=== PATIENT | male | born 1965 | race African-American/Black ===

== ENCOUNTER 2020-01-23 10:53 | Emergency (ER) | payer MEDICAID, OTHER ==
[~2020-01-23] VITALS: Ht 182.9 cm; Wt 86.2 kg
[2020-01-23 11:36] LABS: Urine Bacteria NONE SEEN /hpf (None Seen); Urine Blood Negative /uL (Negative); Urine Mucus FEW (None Seen); Urine Specific Gravity 1.033 (1.001-1.035); Urine WBC 9 /hpf (0 - 3)
[2020-01-23 12:27] VITALS: BP 146/84
== END 2020-01-23 12:56 | disposition home or self-care (01) ==
LOC: ER 10:53 → EDBD 10:53 → ER 12:56
DX: R25.2 Cramp and spasm (principal); F17.210 Nicotine dependence, cigarettes, uncomplicated
CPT/HCPCS: 81001

== ENCOUNTER 2021-11-03 14:34 | Emergency (ER) | payer MEDICAID ==
[~2021-11-03] VITALS: Ht 185.4 cm; Wt 98.9 kg
[2021-11-03] MEDS ORDERED: CEPH-509 PO (15:53)
[2021-11-03 16:54] VITALS: BP 120/68
== END 2021-11-03 17:01 | disposition home or self-care (01) ==
LOC: ER 14:34
DX: S30.812A Abrasion of penis, initial encounter (principal); F17.210 Nicotine dependence, cigarettes, uncomplicated; X58.XXXA Exposure to other specified factors, initial encounter; Y93.89 Activity, other specified; Y92.89 Other specified places as the place of occurrence of the external cause; Y99.8 Other external cause status
CPT/HCPCS: 76870

== ENCOUNTER 2022-04-01 07:59 | Emergency (ER) | payer MEDICAID ==
[~2022-04-01] VITALS: Ht 185.4 cm; Wt 100.8 kg
[~2022-04-01 07:59] MED LIST: CEPH-509 PO
[2022-04-01 08:26] VITALS: BP 137/104
[2022-04-01] MEDS ORDERED: IBUP800T26 PO (10:10)
[2022-04-01] MEDS ORDERED: MONT-8 PO (10:10)
[2022-04-01] MEDS ORDERED: PROM1SOL4 PO (10:10)
[2022-04-01] MEDS ORDERED: AZITTAB PO (10:10)
== END 2022-04-01 10:25 | disposition home or self-care (01) ==
LOC: ER 07:59
DX: J06.9 Acute upper respiratory infection, unspecified (principal); F17.210 Nicotine dependence, cigarettes, uncomplicated; Z79.899 Other long term (current) drug therapy; Z20.822 Contact with and (suspected) exposure to COVID-19
CPT/HCPCS: 36415; 87426; 87804

== ENCOUNTER 2022-05-16 22:43 | Emergency (ER) | payer MEDICAID ==
[~2022-05-16] VITALS: Ht 185.4 cm; Wt 100.0 kg
[~2022-05-16 22:43] MED LIST changes: +AZITTAB PO; +IBUP800T26 PO; +MONT-8 PO; +PROM1SOL4 PO
[2022-05-16 23:53] VITALS: BP 156/107
[2022-05-17] MEDS ORDERED: ASPI81CH59 PO (15:09)
[2022-05-17] MEDS ORDERED: AMLO-489 PO (15:09)
[2022-05-17] MEDS ORDERED: OLME40TA26 PO (15:09)
[2022-05-17] MEDS ORDERED: ATEN-60 PO (15:09)
== END 2022-05-16 23:41 | disposition home or self-care (01) ==
LOC: EDBD 22:43 → ER 22:46
DX: I10 Essential (primary) hypertension (principal); F41.9 Anxiety disorder, unspecified; F17.210 Nicotine dependence, cigarettes, uncomplicated; Z79.1 Long term (current) use of non-steroidal anti-inflammatories (NSAID); Z79.2 Long term (current) use of antibiotics; Z79.899 Other long term (current) drug therapy
CPT/HCPCS: 93005

== ENCOUNTER 2022-05-17 09:42 | Inpatient (IN) | payer MEDICAID ==
[~2022-05-17] VITALS: Ht 185.4 cm; Wt 99.8 kg
[2022-05-17 10:45] LABS: Basophils # (auto) 0 10 ^3/uL (0-0.2); Basophils % (auto) 0.5 % (0.0-2.0); Eosinophils # (auto) 0 10 ^3/uL (0-0.8); Hematocrit 39.7 % (41.0-53.0); Monocytes # (auto) 0.3 10 ^3/uL (0-1.3); Monocytes % (auto) 4.8 % (0.0-12.0); White Blood Cell 7.1 10^3/uL (4.4-10.8)
[2022-05-17 10:48] LABS: Eosinophils % (auto) 0.3 % (0.0-7.0); Lymphocytes # (auto) 1.9 10 ^3/uL (0.4-5.4); Lymphocytes % (auto) 27.4 % (10.0-50.0); Mean Corpuscular Hemoglobin 25.7 pg (28.0-32.0); Mean Corpuscular Hgb Conc. 32.9 g/dL (32.0-36.0); Mean Corpuscular Volume 78.2 fL (80.0-100.0); Neutrophils # (auto) 4.8 10 ^3/uL (1.6-8.6); Red Blood Cells 5.08 10^6/uL (4.5-5.90); Red Cell Distribution Width 14.3 % (11.8-14.3)
[2022-05-17 10:59] LABS: INR 1.02 (0.9-1.15); Partial Thromboplastin Time 34.9 sec (24.6-33.4)
[2022-05-17] MEDS ORDERED: LABETALOL HCL 5 MG/ML 4ML SYRINGE IV ONE (11:15)
[2022-05-17 11:38] LABS: Potassium 3.7 mmol/L (3.5-5.1)
[2022-05-17 11:49] LABS: Albumin 4.1 g/dL (3.4-5.0); BUN/Creatinine Ratio 10.4; Bilirubin, Total 0.5 mg/dL (0.2-1.0); Calcium 8.8 mg/dL (8.5-10.1); Magnesium 2.1 mg/dL (1.6-2.6); Total Protein 7.7 g/dL (6.4-8.2)
[2022-05-17] MEDS ORDERED: hydrALAZINE HCL 20 MG/ML VL IV ONE (13:45)
[2022-05-17] MEDS ORDERED: LORazepam 2MG/ML-1ML VIAL IV ONE ×2 (14:30→16:00)
[2022-05-17] MEDS ORDERED: AMLO-489 PO (15:09)
[2022-05-17] MEDS ORDERED: OLME40TA26 PO (15:09)
[2022-05-17] MEDS ORDERED: ATEN-60 PO (15:09)
[2022-05-17] MEDS ORDERED: ASPI81CH59 PO (15:09)
[2022-05-17] MEDS ORDERED: ASPirin 81 mg TAB PO ONE (16:30)
[2022-05-17] MEDS ORDERED: MORPHINE SULFATE INJ 2 MG/ml SYRG IV PRN (16:30)
[2022-05-17] MEDS ORDERED: NITROGLYCERIN 0.4 MG SL TAB SL PRN (16:30)
[2022-05-17] MEDS ORDERED: METOPROLOL SUCCINATE XL 50 MG TAB PO ONE (16:30)
[2022-05-17 17:07] LABS: Urine Bacteria NONE SEEN /hpf (None Seen); Urine Blood Negative /uL (Negative); Urine Specific Gravity 1.004 (1.001-1.035); Urine WBC 1 /hpf (0 - 3)
[2022-05-17 17:21] LABS: Alcohol, Urine < 3.0 mg/dL (0-10); Amphetamine Screen, Urine NEGATIVE (NEGATIVE); Barbiturate Scree,Urine NEGATIVE (NEGATIVE); Benzodiazephine Screen, Urine NEGATIVE (NEGATIVE); Cocaine Screen, Urine NEGATIVE (NEGATIVE); Opiate Scree,Urine NEGATIVE (NEGATIVE); Phencyclidine Screen, Urine NEGATIVE (NEGATIVE)
[2022-05-17 17:29] LABS: Cannabinoid Screen, Urine POSITIVE (NEGATIVE)
[2022-05-17 18:05] LABS: Cholesterol 122 mg/dL (< 200); HDL Cholesterol 38 mg/dL (40-59); LDL Cholesterol 77 mg/dL (< 100); Triglycerides 69 mg/dL (< 150)
[2022-05-17] MEDS: ATORVASTATIN 20 MG TAB PO SCH (22:22)
[2022-05-17] MEDS ORDERED: TEMAZEPAM 15 MG CAP PO ONE (23:30)
[2022-05-17] MEDS ORDERED: ACETAMINOPHEN 325 MG TAB PO PRN (23:30)
[2022-05-18 04:56] LABS: Basophils # (auto) 0.1 10 ^3/uL (0-0.2); Eosinophils # (auto) 0.1 10 ^3/uL (0-0.8); Eosinophils % (auto) 0.9 % (0.0-7.0); Hemoglobin 13.9 g/dL (13.5-17.5); Lymphocytes # (auto) 2.8 10 ^3/uL (0.4-5.4); Mean Corpuscular Hemoglobin 25.8 pg (28.0-32.0); Monocytes # (auto) 0.7 10 ^3/uL (0-1.3)
[2022-05-18 04:58] LABS: Basophils % (auto) 0.6 % (0.0-2.0); Hematocrit 42.1 % (41.0-53.0); Lymphocytes % (auto) 29.5 % (10.0-50.0); Mean Corpuscular Volume 78.1 fL (80.0-100.0); Monocytes % (auto) 6.9 % (0.0-12.0); Neutrophils # (auto) 5.9 10 ^3/uL (1.6-8.6); Neutrophils % (auto) 62.1 % (37.0-80.0); White Blood Cell 9.6 10^3/uL (4.4-10.8)
[2022-05-18 05:11] LABS: Calcium 9.5 mg/dL (8.5-10.1); Potassium 3.9 mmol/L (3.5-5.1)
[2022-05-18 05:14] LABS: Albumin 3.9 g/dL (3.4-5.0); BUN/Creatinine Ratio 12.5
[2022-05-18 05:25] LABS: Bilirubin, Total 1.1 mg/dL (0.2-1.0); Total Protein 7.7 g/dL (6.4-8.2)
[2022-05-18] MEDS ORDERED: LORazepam 2MG/ML-1ML VIAL IV PRN (06:30)
[2022-05-18] MEDS: ASPirin 81 mg TAB PO SCH (10:25)
[2022-05-18] MEDS: ENOXAPARIN SOD 40 MG/0.4 ML SYRINGE SC SCH (10:26)
[2022-05-18] MEDS: METOPROLOL SUCCINATE XL 50 MG TAB PO SCH (10:26)
[2022-05-18] MEDS ORDERED: hydrALAZINE HCL 20 MG/ML VL IV PRN (14:00)
[2022-05-18] MEDS: ATORVASTATIN 20 MG TAB PO SCH (21:54)
[2022-05-18] MEDS: LISINOPRIL 20 MG TAB PO SCH (21:54)
[2022-05-18 22:00] VITALS: BP 128/80
[2022-05-19 05:00] VITALS: BP 136/85
[2022-05-19] MEDS: ASPirin 81 mg TAB PO SCH (11:23)
[2022-05-19] MEDS: ENOXAPARIN SOD 40 MG/0.4 ML SYRINGE SC SCH (11:23)
[2022-05-19] MEDS: METOPROLOL SUCCINATE XL 50 MG TAB PO SCH (11:25)
[2022-05-19] MEDS: LISINOPRIL 20 MG TAB PO SCH ×2 (11:25→21:48)
[2022-05-19] MEDS ORDERED: CLOPIDOGREL BISULFATE 75 MG TAB PO ONE (14:15)
[2022-05-19] MEDS: CLOPIDOGREL BISULFATE 75 MG TAB PO SCH (15:00)
[2022-05-19] MEDS ORDERED: LISI20TA28 PO (15:36)
[2022-05-19] MEDS ORDERED: ATOR20TA50 PO (15:36)
[2022-05-19] MEDS ORDERED: ASPI-325 PO (15:36)
[2022-05-19] MEDS ORDERED: CLOP75TA70 PO (15:36)
[2022-05-19] MEDS ORDERED: METO-6 PO (15:36)
[2022-05-19] MEDS ORDERED: HYDR25TA5 PO (15:36)
[2022-05-19 17:00] VITALS: BP 134/92
[2022-05-19 20:00] VITALS: BP 140/92
[2022-05-19] MEDS: ATORVASTATIN 20 MG TAB PO SCH (21:47)
[2022-05-19 22:00] VITALS: BP 140/92
[2022-05-20 05:00] VITALS: BP 126/73
[2022-05-20 09:00] VITALS: BP 134/83
[2022-05-20] MEDS ORDERED: CLOPIDOGREL BISULFATE 75 MG TAB PO SCH (10:00)
[2022-05-20] MEDS: ASPirin 81 mg TAB PO SCH (10:41)
[2022-05-20] MEDS: CLOPIDOGREL BISULFATE 75 MG TAB PO SCH (10:41)
[2022-05-20] MEDS: METOPROLOL SUCCINATE XL 50 MG TAB PO SCH (10:42)
[2022-05-20] MEDS: LISINOPRIL 20 MG TAB PO SCH (10:42)
[2022-05-20] MEDS: ENOXAPARIN SOD 40 MG/0.4 ML SYRINGE SC SCH (10:47)
== END 2022-05-20 11:10 | disposition home health service (06) | DRG 45 ==
LOC: ER 09:42 → TELE 16:21 → TELE-EAST 05-18 18:30
PROVIDERS: ADMIT Registered Nurse; ATTEND Hospitalist
DX: I63.9 Cerebral infarction, unspecified (principal); I67.4 Hypertensive encephalopathy; I16.0 Hypertensive urgency; F43.9 Reaction to severe stress, unspecified; G81.91 Hemiplegia, unspecified affecting right dominant side; F17.210 Nicotine dependence, cigarettes, uncomplicated; F12.90 Cannabis use, unspecified, uncomplicated; Z20.822 Contact with and (suspected) exposure to COVID-19; I10 Essential (primary) hypertension; Z79.02 Long term (current) use of antithrombotics/antiplatelets; Z79.82 Long term (current) use of aspirin; Z79.899 Other long term (current) drug therapy; Z82.49 Family history of ischemic heart disease and other diseases of the circulatory system
CPT/HCPCS: 36415; 70450; 70551; 71045; 80053; 80061; 80307; 81001; 83036; 83735; 83880; 84443; 84484; 85025; 85610; 85730; 87426; 93005; 93306; 93886; 96365; 96372; 96375; 96376; G0378; J3490

== ENCOUNTER 2022-11-30 09:00 | Emergency (ER) | payer MEDICAID ==
[~2022-11-30] VITALS: Ht 185.4 cm; Wt 111.2 kg
[~2022-11-30 09:00] MED LIST changes: +ASPI-325 PO; +ATOR20TA50 PO; -AZITTAB PO; -CEPH-509 PO; +CLOP75TA70 PO; +HYDR25TA5 PO; +IBUP-1455 PO; -IBUP800T26 PO; +LISI20TA56 PO; +METO-6 PO; -PROM1SOL4 PO
[2022-11-30 09:16] VITALS: BP 150/95; PULSE 115; RESP 18; O2SAT 97
[2022-11-30] MEDS ORDERED: PSEU120T2 PO (11:48)
[2022-11-30] MEDS ORDERED: IBUP-1454 PO (11:48)
[2022-11-30] MEDS ORDERED: PROM1SOL4 PO (11:48)
== END 2022-11-30 12:23 | disposition home or self-care (01) ==
LOC: ER 09:00
DX: J06.9 Acute upper respiratory infection, unspecified (principal); I10 Essential (primary) hypertension; F17.210 Nicotine dependence, cigarettes, uncomplicated; F12.10 Cannabis abuse, uncomplicated

== ENCOUNTER 2024-08-24 17:43 | Emergency (ER) | payer MEDICAID ==
[~2024-08-24] VITALS: Ht 188 cm; Wt 109.0 kg
[~2024-08-24 17:43] MED LIST changes: +IBUP-1454 PO; +PROM1SOL4 PO; +PSEU120T2 PO
--- NOTE | 2024-08-24 18:09 | ED.PDOC ---
HPI Comments 59y M who presents to the ED via EMS for chief complaint of blood pressure - pt states he had argument with girlfriend at 0000 this AM and states she woke him from his sleep -pt states since waking this AM, he has been checking his blood pressure for which he takes HTN medication HCTZ and states it was approx 200/110 and called EMS - EMS arrived on scene and notes pt BP was 203/145 initially and on repeat was 180/97 with no noted symptoms including headache, dizziness, chest pain or shortness of breath - pt states upon arrival, after talking with EMS, he fells less stress and is noted [id number] and no noted changes in vision, gait, or speech are noted - pt otherwise states he is complaint with his medications Past Medical history: HTN,CVA Past Surgical history: denies Medications: HCTZ Allergies: nkda Social History: endorses ETOH, endorses tobacco use, endorses drug use(marijuana) HPI: Poor Historian. REVIEW OF SYSTEMS: CONSTITUTIONAL: All symptoms have resolved prior to my evaluation. Vital signs improved upon arrival to ED. Denies acute: fever, diaphoresis, chills, generalized weakness. HEAD: Denies acute: headache, photophobia Eyes: Denies acute: Double vision, vision loss, eye pain, eye discharge. EARS: Denies acute: tinnitus, hearing loss, ear discharge, ear pain, THROAT: Denies acute: sore throat, swelling, difficulty swallowing , pain with swallowing, change in voice. NECK: Denies acute: neck pain, neck swelling, stiff neck. HEART: Denies acute : chest pain, palpitations, LUNGS: Denies acute: SOB, wheezing, cough, hemoptysis ABDOMEN: Denies acute: abdominal pain, Nausea, Vomiting, diarrhea, melena , hematemesis, hematochezia SKIN: Denies acute: rash, redness, lesions, itchiness. EXTREMITIES: Denies acute: calf pain, numbness, tingling, weakness, denies pain in extremity. Denies acute: Low back pain. Neuro: Denies acute: focal neurological deficit, motor or sensory focal neurological deficit, tremors, seizure like activity, confusion, dizziness, change in mental status, loss of bowel or bladder function, cauda equina like symptoms. : Denies acute: dysuria, hematuria, flank pain, increase in urinary frequency. PSYCH: Denies acute: hallucination, suicidal ideation, homicidal ideation. PHYSICAL EXAM: General: ----no----acute distress, awake and alert. Head: normocephalic, atraumatic. Neck: supple, trachea is midline, no swelling. Throat: Normal phonation. Eyes:, no erythema, no purulent discharge, no proptosis, no icterus. Heart: regular rate, regular rhythm, no significant murmur appreciated. Lungs: no apparent respiratory distress, Able to speak in full sentences. No wheezing, no rhonchi, no crackles. No stridors Clear to auscultation bilaterally. Abdomen: non tender to palpation, non distended, soft, no guarding, no rebound, + bowel sounds. Neuro: Awake, Alert, oriented to name, self, situation, follows commands GCS=15. Speech is normal. Skin: no petechia, no purpura, no cyanosis, non-pale, not jaundice. Lower extremities: --no - Pitting edema no deformity, no focal swelling, no calf TTP. Makes eye contact. moves all four extremities. Face: no apparent facial droop. Ambulating in the ED independently. ED COURSE: Time Seen by MD: 18:08 Primary Care Provider: GLORIA Reviewed Notes: Nurses Notes, Conveyor Feeder Offbearer Notes, Medications, Allergies Allergies: Coded Allergies: NO KNOWN ALLERGIES (Unverified , 04/01/22) Home Meds Active Scripts Pseudoephedrine (Sudafed 12 Hour) 120 Mg Tab, 120 MG PO BID for 3 Days, #6 TAB 0 Refills Prov:LEONARDO MOSS NP 11/30/22 Ibuprofen (Ibuprofen) 600 Mg Tab, 600 MG PO TIDPRN PRN for 7 Days, #21 TAB 0 Refills Prov:LEONARDO MOSS NP 11/30/22 Promethazine-Dm (Promethazine Dm 6.25-15 mg/5Ml) 1 Anabel Anabel, 5 ML PO TIDPRN PRN for 7 Days, #105 ML 0 Refills Prov:LEONARDO MOSS NP 11/30/22 Hctz (Hydrochlorothiazide) 25 Mg Tab, 25 MG PO DAILY@BREAKFAST, #60 TAB Prov:REYNALDO HOOVER MD 05/19/22 Metoprolol Succinate (Toprol Xl) 50 Mg Tab, 50 MG PO DAILY, #60 TAB Prov:REYNALDO HOOVER MD 05/19/22 Lisinopril (Lisinopril) 20 Mg Tab, 20 MG PO BID, #90 TAB Prov:REYNALDO HOOVER MD 05/19/22 Clopidogrel Bisulfate (CLOPIDOGREL) 75 Mg Tab, 75 MG PO DAILY, #20 TAB Prov:REYNALDO HOOVER MD 05/19/22 Atorvastatin Calcium (ATORVASTATIN CALCIUM) 20 Mg Tab, 40 MG PO HS, #90 TAB Prov:REYNALDO HOOVER MD 05/19/22 Aspirin (Aspirin Low Dose) 81 Mg Tab, 81 MG PO DAILY, #60 TAB Prov:REYNALDO HOOVER MD 05/19/22 Montelukast Sodium (MONTELUKAST SODIUM) 10 Mg Tab, 1 TAB PO DAILY, #30 TAB 5 Refills Prov:ROLDAN PAULSON 04/01/22 Ibuprofen Micronized (Ibuprofen) 800 Mg Tab, 800 MG PO TID PRN, #30 TAB Prov:ROLDAN PAULSON 04/01/22 Information Source: Patient Mode of Arrival: EMS Past Medical History PAST MEDICAL HISTORY: HTN, Denies Family History Family History: Reviewed,noncontributory to illness Social History Smoker: Cigarettes Alcohol: Occasionally Drugs: Marijuana Lives In: Home Was a procedure done? Was a procedure done?: No CP Differential Dx Differential Diagnosis: N/A Differential Diagnosis: Other (DDX include renal disease, thyroid disease, electrolyte abnormality, increased salt intake, medications non-compliance, undiagnosed HTN, Hypertensive crisis, hypertensive urgency., drug toxicity.) X-Ray, Labs, Meds, VS Vital Signs Date Time Temp Pulse Resp B/P (MAP) Pulse Ox O2 Delivery O2 Flow Rate FiO2 08/24/24 23:10 98.4 93 19 133/97 (109) 97 98.4 08/24/24 23:10 93 18 97 Room Air* 0 21 08/24/24 23:09 133/97 08/24/24 22:01 84 14 154/93 (113) 97 4/10/25 21:50 165/98 08/24/24 21:25 95 12 165/98 (120) 97 08/24/24 18:53 98.4 86 18 155/92 (113) 100 98.4 08/24/24 18:15 80 Lab Test 08/24/24 20:27 08/24/24 19:25 Range/Units Troponin I High Sensitivity 8 8 </=54 ng/L White Blood Count 8.1 4.4-10.8 10^3/uL Red Blood Count 5.86 4.5-5.90 10^6/uL Hemoglobin 14.6 13.5-17.5 g/dL Hematocrit 45.0 41.0-53.0 % Mean Corpuscular Volume 76.8 L 80.0-100.0 fL Mean Corpuscular Hemoglobin 24.9 L 28.0-32.0 pg Mean Corpuscular Hemoglobin Concent 32.5 32.0-36.0 g/dL Red Cell Distribution Width 15.6 H 11.8-14.3 % Platelet Count 259 140-450 10^3/uL Mean Platelet Volume 8.3 6.9-10.8 fL Neutrophils (%) (Auto) 46.1 37.0-80.0 % Lymphocytes (%) (Auto) 44.8 10.0-50.0 % Monocytes (%) (Auto) 6.8 0.0-12.0 % Eosinophils (%) (Auto) 1.5 0.0-7.0 % Basophils (%) (Auto) 0.8 0.0-2.0 % Neutrophils # (Auto) 3.7 1.6-8.6 10 ^3/uL Lymphocytes # (Auto) 3.6 0.4-5.4 10 ^3/uL Monocytes # (Auto) 0.5 0-1.3 10 ^3/uL Eosinophils # (Auto) 0.1 0-0.8 10 ^3/uL Basophils # (Auto) 0.1 0-0.2 10 ^3/uL Nucleated Red Blood Cells 0.0 % Sodium Level 138 136-145 mmol/L Potassium Level 3.3 L 3.5-5.1 mmol/L Chloride Level 103 98-107 mmol/L Carbon Dioxide Level 27 20-31 mmol/L Anion Gap 8 5-15 Blood Urea Nitrogen 12 9-23 mg/dL Creatinine 1.09 0.700-1.30 mg/dL Glomerular Filtration Rate Calc 79 >90 mL/min BUN/Creatinine Ratio 11.0 10.0-20.0 Serum Glucose 112 H 74-106 mg/dL Lactic Acid Level 1.1 0.4-2.0 mmol/L Calcium Level 9.8 8.7-10.4 mg/dL Total Bilirubin 0.7 0.2-1.0 mg/dL Aspartate Amino Transferase (AST) 21 13-40 U/L Alanine Aminotransferase (ALT) 30 7-40 U/L Alkaline Phosphatase 138 H 46-116 U/L Total Protein 8.0 5.7-8.2 g/dL Albumin 4.9 H 3.2-4.8 g/dL [place] [id number] Ph: [phone] DIAGNOSTIC IMAGING Diagnostic Imaging Report : [id number] Signed PATIENT: MARIA DE JESUS ASHLEY ACCT: [id number] UNIT: [id number] : 1965 LOC: ER ROOM / BED: / AGE / SEX: 59 / M ADM STATUS: REG ER SERVICE 1803 ORDERING PHYSICIAN: NICHELLE WOODALL DO PROCEDURE(s): HWOCT - HEAD WITHOUT CONTRAST REASON: HTN ORDER NUMBER(s): [id number], ACCESSION NUMBER(s): [id number] EXAM: CT HEAD WITHOUT CONTRAST INDICATION: HTN TECHNIQUE: CT of the head without intravenous contrast. Radiation Dose Information: CT Dose: CTDI volume is 55.27 mGy. Dose-length product is 886.08 mGy*cm The dose indicators for CT are the volume Computed Tomography (CT) Dose Index (CTDIvol) and the Dose Length Product (DLP), and are measured in units of mGy and mGy-cm, respectively. These indicators are not patient dose, but values generated from the CT scanner acquisition factors. The report includes radiation exposure data for exposures received during this examination. COMPARISON: STROKE CTH on DOS: 05/17/22 FINDINGS: There is no evidence of acute intracranial hemorrhage, extra-axial collection, mass effect, midline shift, herniation or hydrocephalus. The ventricles, sulci and cisterns are age appropriate. The hannah-white differentiation is intact. Patchy periventricular and subcortical white matter hypoattenuation is nonspecific but may be related to small vessel ischemic disease. The visualized paranasal sinuses and mastoid air cells are clear. The surrounding soft tissues and osseous structures are unremarkable. IMPRESSION: 1. No acute intracranial hemorrhage 2. No CT findings of territorial ischemia. HS:Y ATED BY: TIMI BARNARD Jr., DO DICTATED DATE/TIME: 08/24/241846 SIGNED BY: TIMI BARNARD Jr., DO SIGNED DATE/TIME: 08/24/241846 CC: [place] [id number] Ph: [phone] DIAGNOSTIC IMAGING Diagnostic Imaging Report : [id number] Signed PATIENT: MARIA DE JESUS ASHLEY ACCT: [id number] UNIT: [id number] : 1965 LOC: ER ROOM / BED: / AGE / SEX: 59 / M ADM STATUS: REG ER SERVICE 02 ORDERING PHYSICIAN: NICHELLE WOODALL DO PROCEDURE(s): CXRP - CHEST PORTABLE REASON: HTN ORDER NUMBER(s): [id number], ACCESSION NUMBER(s): [id number] CHEST RADIOGRAPH Indication: HTN Technique: Single frontal view of the chest was obtained Comparison: CHEST XRAY 1 VIEW on DOS: 05/17/22, CXR1 on DOS: 05/17/22 FINDINGS: Lines and Tubes: None Lungs: No focal consolidation. Pleura: No effusion. No pneumothorax. Cardiomediastinal contours: Unremarkable Bones: No acute osseous abnormality. IMPRESSION: 1. No acute cardiopulmonary disease. HS:Y ATED BY: TIMI BARNARD Jr., DO DICTATED DATE/TIME: 08/24/241841 SIGNED BY: TIMI BARNARD Jr., DO SIGNED DATE/TIME: 08/24/241841 CC: Time of 1ST Reevaluation: 00:00 Reevaluation 1ST: Resolved Patient Education/Counseling: Diagnosis, Treatment Family Education/Counseling: No Family Present Comments Patient presented with the above HPI.--hypertensive urgency----workup was initiated. patient was found with the above mentioned diagnosis. the following medications were ordered: please refer to order lists of meds and tests obtained by myself Dr. Woodall. Patient ED course and VS have been stabilized. Patient has been reassessed in the ED and remained in a stable condition. Pertinent incidental findings were discussed with the patient and/or family. Patient/family voices understanding and is agreeable with plan. Patient has been observed in the ED adequate length of time to insure improvement/stability. Escalation of care considered: Consideration of escalation to observation or admission Patient was DISCHARGED home in a stable condition. All the reports of any imaging studies that were ordered by myself were reviewed by myself. Departure 1 Departure Time of Disposition: 22:16 Impression: Primary Impression: Hypertensive urgency Disposition: HOME / SELF CARE / HOMELESS Condition: Stable Additional Instructions: Additional discharge instructions: You MUST follow-up with your primary care/family doctor in 1 to 2 days. If you are unable to see your primary care/family doctor, please return to our emergency room for re-assessment and re-evaluation in 1 to 2 days. Return to the emergency room here in our facility or to the nearest ER [facility] if your symptoms change or worsen. CONSULTATIONS: you MUST Follow-up for consultation as soon as possible with: -cardiology in 1-2 days. Please call for appointment. You MUST call the consultants office yourself to make an appointment. You may need to arrange that through your insurance and/or your primary/family doctor. If you are unable to see the pre sales technical consultant in 1 to 2 days, you must return to our emergency room (or any other ER of your choice) for re-assessment and re- evaluation. Adequate fluid hydration. Monitoring blood pressure at home at least 3 times a day. Discharged With: Self Critical Care Note Critical Care Time?: Yes (35 min-critical care time only) Heart Score Heart Score: Heart Score Response (Comments) Value History Slightly Suspicious 0 EKG Normal 0 Age 45-64 1 Risk Factors 1 or 2 risk factors 1 Troponin Normal limit 0 Total 2 I personally scribed for NICHELLE WOODALL DO ([email or web address]) on 08/24/24 at 18:09. Electronically submitted by Crow Iniguez ([email or web address]). I personally scribed for NICHELLE WOODALL DO ([email or web address]) on 08/24/24 at 19:59. Electronically submitted by Crow Iniguez ([email or web address]). NICHELLE WOODALL DO Aug 24, 2024 18:09
--- NOTE | 2024-08-24 18:44 | ECG ---
[facility] Test Date: 2024-08-24 Test Time: 18:11:10 Pat Name: MARIA DE JESUS ASHLEY Department: ED Room: Gender: M Survey Interviewer: CAMMY : 1965 Requested By: NICHELLE WOODALL Order Number: [id number] Reading MD: Riley Hill Measurements Intervals [place] Rate: 80 P: 40 MA: 167 QRS: -16 QRSD: 103 T: 33 QT: 390 QTc: 450 Interpretive Statements Sinus rhythm Probable left atrial enlargement Left ventricular hypertrophy Baseline wander in lead(s) III Electronically Signed On 08-24-2024 21:00:04 PDT by Riley Hill Please click the below link to view image of tracing.
--- NOTE | 2024-08-24 18:44 | DVH ---
CHEST RADIOGRAPH Indication: HTN Technique: Single frontal view of the chest was obtained Comparison: CHEST XRAY 1 VIEW on DOS: 05/17/22, CXR1 on DOS: 05/17/22 FINDINGS: Lines and Tubes: None Lungs: No focal consolidation. Pleura: No effusion. No pneumothorax. Cardiomediastinal contours: Unremarkable Bones: No acute osseous abnormality. IMPRESSION: 1. No acute cardiopulmonary disease. HS:Y
--- NOTE | 2024-08-24 18:49 | DVH ---
EXAM: CT HEAD WITHOUT CONTRAST INDICATION: HTN TECHNIQUE: CT of the head without intravenous contrast. Radiation Dose Information: CT Dose: CTDI volume is 55.27 mGy. Dose-length product is 886.08 mGy*cm The dose indicators for CT are the volume Computed Tomography (CT) Dose Index (CTDIvol) and the Dose Length Product (DLP), and are measured in units of mGy and mGy-cm, respectively. These indicators are not patient dose, but values generated from the CT scanner acquisition factors. The report includes radiation exposure data for exposures received during this examination. COMPARISON: STROKE CTH on DOS: 05/17/22 FINDINGS: There is no evidence of acute intracranial hemorrhage, extra-axial collection, mass effect, midline s hift, herniation or hydrocephalus. The ventricles, sulci and cisterns are age appropriate. The hannah-white differentiation is intact. Patchy periventricular and subcortical white matter hypoattenuation is nonspecific but may be related to small vessel ischemic disease. The visualized paranasal sinuses and mastoid air cells are clear. The surrounding soft tissues and osseous structures are unremarkable. IMPRESSION: 1. No acute intracranial hemorrhage 2. No CT findings of territorial ischemia. HS:Y
[2024-08-24 19:52] LABS: Basophils # (auto) 0.1 10 ^3/uL (0-0.2); Basophils % (auto) 0.8 % (0.0-2.0); Eosinophils # (auto) 0.1 10 ^3/uL (0-0.8); Eosinophils % (auto) 1.5 % (0.0-7.0); Hemoglobin 14.6 g/dL (13.5-17.5); Lymphocytes # (auto) 3.6 10 ^3/uL (0.4-5.4); Lymphocytes % (auto) 44.8 % (10.0-50.0); Mean Corpuscular Hemoglobin 24.9 pg (28.0-32.0); Mean Corpuscular Hgb Conc. 32.5 g/dL (32.0-36.0); Mean Corpuscular Volume 76.8 fL (80.0-100.0); Monocytes # (auto) 0.5 10 ^3/uL (0-1.3); Monocytes % (auto) 6.8 % (0.0-12.0); Neutrophils # (auto) 3.7 10 ^3/uL (1.6-8.6); Neutrophils % (auto) 46.1 % (37.0-80.0); Platelet Count (auto) 259 10^3/uL (140-450); Red Blood Cells 5.86 10^6/uL (4.5-5.90); Red Cell Distribution Width 15.6 % (11.8-14.3); White Blood Cell 8.1 10^3/uL (4.4-10.8)
[2024-08-24 20:08] LABS: Alanine Aminotransferase 30 U/L (7-40); Anion Gap 8 (5-15); Aspartate Aminotransferase 21 U/L (13-40); Blood Urea Nitrogen 12 mg/dL (9-23); Calcium 9.8 mg/dL (8.7-10.4); Carbon Dioxide 27 mmol/L (20-31); Chloride 103 mmol/L (98-107); Sodium 138 mmol/L (136-145)
[2024-08-24 20:09] LABS: Bilirubin, Total 0.7 mg/dL (0.2-1.0)
[2024-08-24 20:30] LABS: Albumin 4.9 g/dL (3.2-4.8); Alkaline Phosphatase 138 U/L (46-116); Glucose 112 mg/dL (74-106); Potassium 3.3 mmol/L (3.5-5.1)
[2024-08-24] MEDS: NITROGLYCERIN 0.4 MG SL TAB SL ONE (21:50)
[2024-08-24 23:10] VITALS: BP 133/97; PULSE 93; RESP 18; TEMP 98.4; O2SAT 97
== END 2024-08-24 23:23 | disposition home or self-care (01) ==
LOC: EDBD 17:43 → ER 17:43
DX: I16.0 Hypertensive urgency (principal); F12.90 Cannabis use, unspecified, uncomplicated; F17.210 Nicotine dependence, cigarettes, uncomplicated; I10 Essential (primary) hypertension; Z79.02 Long term (current) use of antithrombotics/antiplatelets; Z79.82 Long term (current) use of aspirin; Z79.899 Other long term (current) drug therapy
CPT/HCPCS: 36415; 70450; 71045; 80053; 83605; 84484; 85025; 93005